=== PATIENT | female | born 1960 | race Caucasian/White ===

== ENCOUNTER 2018-08-28 13:09 | Emergency (ER) | payer OTHER ==
[~2018-08-28] VITALS: Ht 162.6 cm; Wt 119.1 kg
[~2018-08-28 13:09] MED LIST: DOCU250C9 PO; DOXY20TA5 PO; HYDR-3237 PO; LEVO112T2 PO; METH2.5T PO; NAPR-685 PO; ONDA4TAB13 SL
[2018-08-28] MEDS ORDERED: METHOCARBAMOL 1,000 MG in DEXTROSE 5% 100 ML IV ONE (13:30)
[2018-08-28] MEDS ORDERED: KETOROLAC 30 MG/1 ML IM ONE (13:30)
[2018-08-28] MEDS ORDERED: KETOROLAC 30 MG/1 ML ONE (13:47)
[2018-08-28 16:01] VITALS: BP 165/87
== END 2018-08-28 16:15 | disposition home or self-care (01) ==
LOC: ED 13:30
DX: S39.012A Strain of muscle, fascia and tendon of lower back, initial encounter (principal); M48.061 Spinal stenosis, lumbar region without neurogenic claudication; M12.88 Other specific arthropathies, not elsewhere classified, other specified site; E03.9 Hypothyroidism, unspecified; X58.XXXA Exposure to other specified factors, initial encounter; Y93.89 Activity, other specified; Y99.8 Other external cause status; Y92.89 Other specified places as the place of occurrence of the external cause
CPT/HCPCS: 72131; 96365; 96366; 96372; 99285; J1885; J2800

== ENCOUNTER 2018-09-11 09:32 | Emergency (ER) | payer OTHER ==
[~2018-09-11] VITALS: Ht 162.6 cm; Wt 119.0 kg
[2018-09-11] MEDS ORDERED: ONDANSETRON ODT 4 MG ONE (10:07)
[2018-09-11] MEDS ORDERED: HYDROmorphone 2 MG/ML, 1ML ONE (10:07)
[2018-09-11] MEDS ORDERED: DIAZEPAM 5 MG TABLET ONE (10:14)
[2018-09-11] MEDS ORDERED: ONDANSETRON ODT 4 MG PO ONE (10:30)
[2018-09-11] MEDS ORDERED: HYDROmorphone 2 MG/ML, 1ML IM ONE (10:30)
[2018-09-11] MEDS ORDERED: DIAZEPAM 5 MG TABLET PO ONE (10:30)
[2018-09-11 11:54] VITALS: BP 135/77
[2018-09-11] MEDS ORDERED: MELO15TA24 PO (11:59)
[2018-09-11] MEDS ORDERED: METH750T87 PO (11:59)
== END 2018-09-11 13:40 | disposition home or self-care (01) ==
LOC: ED 09:58
DX: M51.36 Other intervertebral disc degeneration, lumbar region (principal); G89.29 Other chronic pain; E03.9 Hypothyroidism, unspecified; M19.90 Unspecified osteoarthritis, unspecified site; Z88.0 Allergy status to penicillin
CPT/HCPCS: 72148; 96372; 99284; J1170; Q0162